=== PATIENT | female | born 1950 | race Caucasian/White ===

== ENCOUNTER 2018-12-21 19:13 | Observation (INO) | payer MEDICARE, BC ==
[~2018-12-21 19:13] MED LIST: Iopamidol-370 76% 500 ML 1 ML ONE
[2018-12-21] MEDS ORDERED: Ondansetron PF 4 MG/2 ML Vial ONE (19:56)
[2018-12-21 20:12] LABS: #Eosinphils 0.1 thou/uL (0.0-0.7); #Monocytes 0.8 thou/uL (0.11-0.59); #Neutrophils 8.3 thou/uL (1.40-6.50); %Basophils 0.3 % (0.0-1.0); %Eosinophils 0.7 % (0.0-10.0); %Lymphocytes 17.9 % (21.0-51.0); %Monocytes 7.4 % (0.0-10.0); %Neutrophils 73.7 % (42.0-75.0); Platelet Count 305 thou/uL (130-400); RBC Distribution Width 11.7 % (11.5-14.5); Red Blood Cell (RBC) Count 4.53 mill/uL (4.20-5.40); White Blood Cell (WBC) Count 11.2 thou/uL (4.8-10.8)
[2018-12-21 20:39] LABS: ALT (SGPT) 31 U/L (8-55); AST (SGOT) 28 U/L (5-34); Albumin 4.8 g/dL (3.4-4.8); Alkaline Phosphatase 82 U/L (40-110); Anion Gap 18 mmol/L (10-20); BUN (Urea Nitrogen) 24 mg/dL (9.8-20.1); Bilirubin, Total 0.7 mg/dL (0.2-1.2); Calc. Creatinine Clearance 0 mL/min (70-130); Calcium 10.5 mg/dL (7.8-10.44); Carbon Dioxide 23 mmol/L (23-31); Chloride 103 mmol/L (98-107); Estimated GFR-MDRD 64; Globulin 2.8 g/dL (2.4-3.5); Glucose 86 mg/dL (80-115); Lipase 8 U/L (8-78); Potassium 3.6 mmol/L (3.5-5.1); Protein, Total 7.6 g/dL (6.0-8.3); Sodium 140 mmol/L (136-145)
[2018-12-21 21:01] LABS: Bacteria/HPF None Seen HPF (None Seen); Bilirubin Negative (Negative); Blood, Urine Negative (Negative); Clarity Clear (Clear); Glucose, Urine (Dipstick) Normal (Negative); Leukocyte 25 Leu/uL (Negative); Nitrite Negative (Negative); Protein, Urine (Dipstick) Negative (Neg-Trace); RBC/HPF 0-3 HPF (0-3); Squamous Epithelial None Seen HPF (0-3); Urobilinogen Normal mg/dL (Less than 2)
--- NOTE | 2018-12-21 21:15 | CT ---
CT abdomen and pelvis with IV contrast HISTORY: Abdominal pain. Rectal bleeding. COMPARISON: 03/23/2015. FINDINGS: The lung bases are clear. There are 3 tiny calcifications within nondilated calyces of the inferior pole of the right kidney. No stones remain on the left. Prominent calcification throughout the arterial structures. Diverticula arise from the colon. There i s long segment circumferential wall thickening involving the splenic flexure of the colon and the entirety of the left colon to the upper sigmoid colon. No adjacent fluid or gas. Appendix is not inflamed. No evidence of bowel obstruction. Degenerative changes lumbar spine. IMPRESSION: There is mild long segment circumferential wall thickening with the appearance of inflamm ation involving the left colon. The distribution is in that of the inferior mesenteric artery, so that ischemic process must be considered. Also consider infection and inflammatory bowel disease. Diverticulosis. Pattern of inflammation is not typical for diverticulitis. Atherosclerosis. Tiny nonobstructing right renal calculi.
[2018-12-21] MEDS ORDERED: metroNIDAZOLE 500 MG/100 ML BAG ONE (22:09)
[2018-12-21] MEDS ORDERED: Ondansetron ODT 4 MG TAB SL PRN (23:23)
[2018-12-21] MEDS ORDERED: Ondansetron PF 4 MG/2 ML Vial IVP PRN (23:23)
[2018-12-21] MEDS ORDERED: Sodium Chloride 0.9% 1,000 ML IV SCH (23:30)
[2018-12-21 23:54] VITALS: BMI 24.7
[2018-12-22] MEDS ORDERED: Ondansetron ODT 4 MG TAB PO PRN (02:01)
[2018-12-22] MEDS ORDERED: hydrALAZINE 20 MG/ML VIAL SLOW IVP PRN (02:01)
[2018-12-22] MEDS ORDERED: Melatonin 3 MG TAB PO PRN (02:01)
[2018-12-22] MEDS ORDERED: Ondansetron PF 4 MG/2 ML Vial IVP PRN (02:01)
[2018-12-22] MEDS ORDERED: Acetaminophen 500 MG TAB PO PRN ×2 (02:01→13:32)
[2018-12-22] MEDS: Sodium Chloride 0.9% 1,000 ML IV SCH ×3 (03:02→20:43)
[2018-12-22] MEDS ORDERED: metroNIDAZOLE 500 MG in Premix Bag 1 BAG IVPB SCH ×2 (06:00)
[2018-12-22] MEDS: Mometasone/Formoterol 120 PUFF INHALER INH SCH ×2 (06:24→18:57)
[2018-12-22 06:34] LABS: Mean Corpuscular HGB CONC 33.8 g/dL (32.0-36.0); Mean Corpuscular Volume 91.8 fL (78.0-98.0); Mean Platelet Volume 6.7 fL (7.4-10.4); Platelet Count 270 thou/uL (130-400); RBC Distribution Width 11.8 % (11.5-14.5); Red Blood Cell (RBC) Count 3.86 mill/uL (4.20-5.40); White Blood Cell (WBC) Count 7.3 thou/uL (4.8-10.8)
[2018-12-22 06:47] LABS: Anion Gap 11 mmol/L (10-20); BUN (Urea Nitrogen) 17 mg/dL (9.8-20.1); Band 2 % (5-11); Calc. Creatinine Clearance 78 mL/min (70-130); Calcium 9.3 mg/dL (7.8-10.44); Carbon Dioxide 26 mmol/L (23-31); Chloride 108 mmol/L (98-107); Eosinophils 3 % (0-10); Estimated GFR-MDRD 69; Glucose 90 mg/dL (80-115); Lymphocytes 33 % (21-51); MDiff Complete? YES; Monocytes 15 % (0-10); Neutrophil 47 % (42-75); Sodium 141 mmol/L (136-145)
--- NOTE | 2018-12-22 08:08 | HP ---
PRIMARY CARE PROVIDER: Dr. Binu Carrillo at [facility]. CHIEF COMPLAINT: Blood per rectum. HISTORY OF PRESENT ILLNESS: This is a 68-year-old female, who initially presented to [facility] Emergency Department complaining of approximate 3-day history of abdominal cramping with bright red blood per rectum. The patient noted the blood on toilet paper within the last 24 hours on 3 different occasions. The patient initially noted abdominal cramping without diarrhea, nausea, or vomiting. The patient denied any recent antibiotic exposure, travel history, or family members with similar symptoms. The patient denies any difficulty with constipation, and underwent colonoscopy exam within the last 2 months prior to this evaluation noted with diverticulosis with recommendations for followup in 3 years for repeat endoscopy. The patient denies any weight changes, change to her dietary regimen, or chronic medications. The patient became concerned when she had the bright red blood on the toilet paper and presented to the emergency room. The patient denied any use of anticoagulation or aspirin. In the emergency room, the patient underwent general evaluation with initial hemoglobin of 14. CT of the abdomen and pelvis was performed showing questionable inflammatory process in the left colon. The patient was initiated on Levaquin 750 mg in addition to Flagyl 500 mg. The patient received intravenous normal saline and Zofran. PAST MEDICAL HISTORY: 1. Hyperlipidemia. 2. Hypertension. 3. History of renal lithiasis, status post lithotripsy. 4. Chronic obstructive pulmonary disease. 5. Diverticulosis. PAST SURGICAL HISTORY: 1. Status post section x1. 2. Status post sinus cauterization. 3. Status post ureteral calculus extraction. CURRENT MEDICATIONS: 1. Lipitor 10 mg p.o. at bedtime. 2. Symbicort 160/4.5 two puffs inhaled b.i.d. 3. Hydrochlorothiazide 12.5 mg p.o. daily. 4. DuoNeb two inhalations q.i.d. 5. Losartan 100 mg p.o. daily. 6. Singulair 10 mg p.o. at bedtime. 7. Spiriva HandiHaler 18 mcg inhaled daily. 8. Turmeric root extract 500 mg p.o. daily. ALLERGIES: NO KNOWN DRUG ALLERGIES. FAMILY HISTORY: No inheritable diseases per patient's report. SOCIAL HISTORY: . Resides in [place], [place]. Retired. No alcohol, tobacco, or illicit drug use. REVIEW OF SYSTEMS: CONSTITUTIONAL: Negative for weight loss or gain, ability to conduct usual activities. SKIN: Negative for rash, itching. EYES: Negative for double vision, pain. ENT/MOUTH: Negative for nose bleeding, neck stiffness, pain, tenderness. CARDIOVASCULAR: Negative for palpitations, dyspnea on exertion, orthopnea. RESPIRATORY: Negative for shortness of breath, wheezing, cough, hemoptysis, fever or night sweats. GASTROINTESTINAL: Negative for poor appetite, abdominal pain, heartburn, nausea, vomiting, constipation, or diarrhea. GENITOURINARY: Negative for urgency, frequency, dysuria, nocturia. MUSCULOSKELETAL: Negative for pain, swelling. NEUROLOGIC/PSYCHIATRIC: Negative for anxiety, depression. ALLERGY/IMMUNOLOGIC: Negative for skin rash, bleeding tendency. Otherwise, negative except as stated per HPI. PHYSICAL EXAMINATION: VITAL SIGNS: On admission, blood pressure 180/112, pulse 121, respiratory rate 18, temperature 98.9 degrees Fahrenheit, O2 saturation 95% on room air. GENERAL APPEARANCE: This is a 68-year-old female, alert and oriented x3, pleasant, conversant, responsive, in no acute distress. HEENT: Pupils are equal, round, reactive to light and accommodation. Extraocular muscles are intact. No scleral icterus. No conjunctival injection. Nares are patent. OP is clear. Teeth in good repair. NECK: Supple. No cervical adenopathy. No thyromegaly. No carotid bruits. No JVD appreciated. Cervical spine with full active and passive range of motion. No meningeal signs noted. CHEST: Lungs are clear to auscultation bilaterally. CARDIOVASCULAR: S1 and S2 without noted murmur, rub, or gallop. ABDOMEN: Rounded, soft, nontender, and nondistended. Bowel sounds positive in all 4 quadrants. No palpable mass. No rebound or guarding noted. EXTREMITIES: Warm and dry with fair turgor. No clubbing, cyanosis, or asymmetric edema appreciated. Pulses palpable distally at the dorsalis pedis, posterior tibial, and popliteal arteries bilaterally. Capillary refill less than 2 seconds. NEUROLOGIC: Cranial nerves 2 through 12 are grossly intact. No focal or lateralizing signs appreciated. PERTINENT LABORATORY AND X-RAY FINDINGS: Sodium 140, potassium 3.6, chloride 103, CO2 of 23, BUN 24, creatinine 0.88, estimated GFR 64, glucose 86, calcium 10.5. LFTs within normal limits. Lipase 8. CBC showed a white blood cell count of 11.2, hemoglobin 14, hematocrit 41, platelet count 305 with 74% neutrophils. Urinalysis negative. CT of the abdomen and pelvis dated 12/21/2018, showed mild circumferential wall thickening in the left colon. Diverticulosis. ASSESSMENT AND PLAN: 1. Colitis with hematochezia. The patient will be observed on the medical floor. Presumed infectious process with inflammatory changes. Continue Levaquin 500 mg IV daily with additional Flagyl 500 mg IV q.8 hours. Consult GI Service in the a.m. for any further recommendations. Recent colonoscopy showed diverticulosis per patient's report. Continue IV fluids with normal saline at 100 mL/h. Repeat CBC in the a.m. 2. Abdominal pain secondary to #1. Continue supportive management as outlined in #1. Clear liquids as tolerated. 3. Acute kidney injury on chronic kidney disease stage 2. Continue IV fluids as outlined previously in #1. Avoid nephrotoxic agents and limit contrast exposure. Repeat creatinine in the a.m. 4. Hypertension. Resume home antihypertensive regimen and monitor clinical response. 5. Prophylaxis. SCDs while in bed. Pepcid 20 mg p.o. b.i.d. 6. Code status, full. Surrogate medical decision maker is the patient's spouse. Job ID: [id number]
[2018-12-22] MEDS ORDERED: Non-Formulary Item 1 EACH (Tiotropium [Spiriva Handihaler] 18 MCG) INH SCH (09:00)
[2018-12-22] MEDS: Famotidine 20 MG TAB PO SCH ×2 (10:17→20:44)
[2018-12-22] MEDS: Hydrochlorothiazide 25 MG TAB PO SCH (10:18)
[2018-12-22] MEDS: Losartan 25 MG TAB PO SCH (10:19)
[2018-12-22] MEDS: metroNIDAZOLE 500 MG TAB PO SCH ×2 (16:16→20:44)
[2018-12-22] MEDS: Ciprofloxacin 500 MG TAB PO SCH (20:43)
[2018-12-22] MEDS ORDERED: Montelukast Sodium 10 mg Tablet PO SCH (21:00)
--- NOTE | 2018-12-22 21:53 | CON ---
DATE OF CONSULTATION: 12/22/2018 REASON FOR CONSULTATION: Hematochezia, abnormal GI imaging. CONSULTING PROVIDER: Jose Jean-Baptiste MD. HISTORY OF PRESENT ILLNESS: The patient is a 68-year-old female with past medical history of hyperlipidemia, hypertension, nephrolithiasis, COPD and diverticulosis presenting with complaints of hematochezia. She states that approximately 2 months ago, she had a colonoscopy performed at [facility] and was informed that she did not have any polyps or malignancies at that time, but she did have left-sided diverticulosis. However, she was in her usual state of health until approximately 3 days ago when she began to have generalized abdominal pain characterized as a "gas type" pain with associated cramping. The pain was constant with waxing/waning severity, and reached a severity of 10/10 associated with this increased abdominal pain with the appearance of hematochezia x3 where she had approximately 3 bloody bowel movements characterized as bright red blood per rectum with blood and blood clots seen primarily only on the toilet paper and not in the toilet. She did describe a [id number] amount of blood with passage of stool on these 3 occasions, but denies any grossly bloody bowel movements. This was also associated with increased flatus production, burping, nausea without overt emesis and subjective chills. The increasing abdominal pain then prompted her to seek healthcare assistance at the [facility] ER and while being evaluated in the ER, she had complete resolution of her pain. Since that time, she has not had recurrence of her pain and has not had any further episodes of hematochezia either. Currently, she denies any vomiting fevers, hematemesis, melena, dysphagia, odynophagia, or weight loss. REVIEW OF SYSTEMS: A 10-category review of systems was obtained with all responses negative except for the pertinent positives as listed in the HPI. PAST MEDICAL HISTORY: As per HPI. PAST SURGICAL HISTORY: x1, kidney stone extraction and sinus catheterization. FAMILY HISTORY: Denies any GI malignancies. SOCIAL HISTORY: Denies any tobacco, alcohol, or illicit drug use. OUTPATIENT MEDICATIONS: Reviewed. ALLERGIES: NO KNOWN DRUG ALLERGIES. PHYSICAL EXAMINATION: VITAL SIGNS: Temperature 98.7, pulse 100, blood pressure 121/71, respiratory rate 18, saturating 100% on room air. GENERAL: The patient was lying in bed, in no acute distress. Alert and oriented x4. HEENT: Normocephalic, atraumatic. NECK: Supple. No JVD or scleral icterus noted. CARDIOVASCULAR: Tachycardic rate, but regular rhythm with no discernible murmurs, gallops, or rubs. RESPIRATORY: Clear to auscultation bilaterally with no discernible wheezes or rales. ABDOMEN: Hyperactive bowel sounds. Soft, nontender, nondistended. EXTREMITIES: No cyanosis, clubbing, or edema. LABORATORY DATA: CBC with a white blood cell count of 7.3, hemoglobin 12, hematocrit 35.5, platelets 270. Chemistry with a sodium of 141, potassium 4, chloride 108, CO2 of 26, BUN 17, creatinine 0.83, glucose 90, AST 28, ALT 31, alkaline phosphatase 82, total bilirubin 0.7. IMAGING DATA: CT of the abdomen and pelvis was obtained on December 21 2018, which showed diverticula arising from the colon. However, there was a long segment of circumferential wall thickening involving the splenic flexure of the colon and the entirety of the left colon to the upper sigmoid colon without any adjacent fluid or gas. An ischemic versus inflammatory type process was suspected although the pattern of inflammation was not typical for diverticulitis. ASSESSMENT AND PLAN: The patient is a 68-year-old female with past medical history of hyperlipidemia, hypertension, nephrolithiasis, chronic obstructive pulmonary disease and diverticulosis presenting with generalized abdominal pain hematochezia and abnormal GI imaging concerning for diverticulitis versus ischemic colitis. Colitis: The patient is presenting with the acute onset of generalized abdominal pain for the last 3 days characterized as a gas/cramping type pain that was constant until being evaluated in the [facility] ER, where she has had complete resolution of her abdominal pain. At this time, the patient does have imaging findings consistent with inflammation of the colon tracking along the left side of the colon concerning for diverticulitis versus ischemic colitis. However, she has been responsive to IV fluid resuscitation and antibiotic administration at this time, making the diagnosis of diverticulitis a little bit more likely although ischemic colitis cannot be entirely ruled out at this time. RECOMMENDATIONS: 1. We would continue antibiotics for total duration of therapy of 7-10 days with ciprofloxacin and Flagyl. 2. We would continue with IV fluid resuscitation and down titration of her of IV fluids as the patient tolerates more oral intake. 3. We would recommend a low residue diet at least for the next 1-2 weeks and then slowly add higher fiber food back to her diet. 4. We would attempt to maintain normotensive pressures while inpatient. 5. Endoscopic evaluation is not indicated at this time given the increased risk of perforation with either ischemic colitis or diverticulitis. 6. If the patient is doing well again tomorrow, could consider discharge to home with antibiotics and follow up in the GI Clinic as an outpatient. 7. We will continue to follow this patient while inpatient. Please call with any questions. Job ID: [id number]
[2018-12-23] MEDS: Sodium Chloride 0.9% 1,000 ML IV SCH (06:09)
[2018-12-23] MEDS: Ciprofloxacin 500 MG TAB PO SCH (06:09)
[2018-12-23] MEDS: Mometasone/Formoterol 120 PUFF INHALER INH SCH (06:19)
[2018-12-23 06:24] LABS: Hemoglobin 11.7 g/dL (12.0-16.0); Mean Corpuscular HGB CONC 34.1 g/dL (32.0-36.0); Mean Corpuscular Hemoglobin 31.9 pg (27.0-31.0); Mean Corpuscular Volume 93.6 fL (78.0-98.0); Mean Platelet Volume 6.9 fL (7.4-10.4); Platelet Count 252 thou/uL (130-400); RBC Distribution Width 11.9 % (11.5-14.5); Red Blood Cell (RBC) Count 3.66 mill/uL (4.20-5.40); White Blood Cell (WBC) Count 5.8 thou/uL (4.8-10.8)
[2018-12-23 06:26] LABS: Anion Gap 9 mmol/L (10-20); BUN (Urea Nitrogen) 11 mg/dL (9.8-20.1); Calc. Creatinine Clearance 73 mL/min (70-130); Carbon Dioxide 28 mmol/L (23-31); Chloride 109 mmol/L (98-107); Estimated GFR-MDRD 63; Glucose 128 mg/dL (80-115); Sodium 142 mmol/L (136-145)
[2018-12-23] MEDS: Famotidine 20 MG TAB PO SCH (08:42)
[2018-12-23] MEDS: metroNIDAZOLE 500 MG TAB PO SCH ×2 (08:43→14:36)
[2018-12-23 13:50] VITALS: BP 116/75; TEMP 98.3
--- NOTE | 2018-12-23 14:35 | PDOC.HOSPP ---
- Subjective Encounter Date: 12/23/18 Encounter Time: 14:33 Subjective: Ms. Starkey was seen today in follow-up of colitis. She says she is tolerating the full liquid diet. She does not have any complaints. - Objective Vital Signs & Weight: Vital Signs (12 hours) Temp Pulse Resp BP BP Pulse Ox 12/23/18 14:20 90 16 97 12/23/18 13:37 98.3 F 92 20 116/75 94 L 12/23/18 11:37 95 123/57 L 12/23/18 10:18 98 16 97 12/23/18 08:40 113/63 12/23/18 07:17 98.2 F 93 17 110/64 92 L 12/23/18 06:16 84 16 95 12/23/18 04:00 98.6 F 80 18 106/63 95 Weight Weight 163 lb I&O: 12/22/18 12/23/18 12/24/18 06:59 06:59 06:59 Intake Total 1100 4105 Balance 1100 4105 Result Diagrams: 12/23/18 05:16 12/23/18 05:16 Hospitalist ROS - Medication Medications: Active Medications Generic Name Dose Route Start Last Admin Trade Name Freq PRN Reason Stop Dose Admin Albuterol/Ipratropium 3 ml 12/22/18 07:00 12/23/18 14:20 Duoneb NEB 3 ml QID-RT BALTA Administration Ciprofloxacin 500 mg 12/22/18 20:00 12/23/18 06:09 Cipro PO 500 mg BID@0600,2000 BALTA Administration Famotidine 20 mg 12/22/18 09:00 12/23/18 08:42 Pepcid PO 20 mg BID BALTA Administration Hydrochlorothiazide 12.5 mg 12/22/18 09:00 12/22/18 10:18 Hydrochlorothiazide PO 12.5 mg DAILY BALTA Administration Losartan Potassium 100 mg 12/22/18 09:00 12/22/18 10:19 Cozaar PO 100 mg DAILY BALTA Administration Metronidazole 500 mg 12/22/18 15:00 12/23/18 08:43 Flagyl PO 500 mg TID BALTA Administration Mometasone Furoate/Formoterol Fumar 2 puff 12/22/18 06:30 12/23/18 06:19 Dulera 200 Mcg/5 Mcg Inhaler INH 2 puff BID-RT BALTA Administration Montelukast Sodium 10 mg 12/22/18 21:00 12/22/18 20:44 Singulair PO 10 mg HS BALTA Administration Ondansetron HCl 4 mg 12/22/18 02:01 12/22/18 20:44 Zofran Odt PO 4 mg Q6H PRN Administration Nausea/Vomiting - Exam Eye: PERRL, anicteric sclera Heart: RRR (tachycardic), no murmur, no gallops, no rubs, normal peripheral pulses Respiratory: CTAB, no wheezes, no rales, no ronchi, normal chest expansion, normal percussion Gastrointestinal: soft, non-tender, non-distended, normal bowel sounds, no palpable masses, no hepatomegaly, no splenomegaly Extremities: no cyanosis, no edema Hosp A/P (1) Colitis Code(s): K52.9 - NONINFECTIVE GASTROENTERITIS AND COLITIS, UNSPECIFIED Status : Acute (2) Diverticulitis Code(s): K57.92 - DVTRCLI OF INTEST, PART UNSP, W/O PERF OR ABSCESS W/O BLEED Status: Acute (3) Tachycardia Code(s): R00.0 - TACHYCARDIA, UNSPECIFIED Status: Acute (4) Hypertension Code(s): I10 - ESSENTIAL (PRIMARY) HYPERTENSION Status: Chronic (5) COPD (chronic obstructive pulmonary disease) Status: Chronic - Plan * Colitis- possibly due to Diverticulitis- improving * Tachycardia- I suspect due to albuterol neb treatments- but will check an EKG to make sure it is sinus rhythm * COPD- stable * HTN- blood pressure is low normal- she may be still volume depleted- , this may also explain the rapid heart rate
[2018-12-23] MEDS: Hydrochlorothiazide 25 MG TAB PO SCH (15:00)
[2018-12-23] MEDS: Losartan 25 MG TAB PO SCH (15:00)
--- NOTE | 2018-12-24 01:47 | DIS ---
DATE OF ADMISSION: 12/21/2018 DATE OF DISCHARGE: 12/23/2018 DISCHARGE DIAGNOSES: 1. Probable diverticulitis. 2. Hypertension. 3. Chronic obstructive pulmonary disease. 4. Dehydration, resolved. DISCHARGE MEDICATIONS: Include: 1. Ciprofloxacin 500 mg p.o. twice daily for 1 week. 2. Flagyl 500 mg p.o. t.i.d. for a week. 3. Turmeric extract 1 tablet daily. 4. Spiriva 18 mcg inhaled daily. 5. Singulair 10 mg p.o. at bedtime. 6. Losartan 100 mg p.o. daily. 7. Hydrochlorothiazide 12.5 mg daily. 8. Budesonide 2 puffs twice daily, appears to be Symbicort 160/4.5 mg. 9. Lipitor 10 mg at bedtime. CODE STATUS: Full code. ALLERGIES: NO KNOWN DRUG ALLERGIES. PROCEDURES DONE DURING THE ADMISSION: The patient had a CT scan of the abdomen and pelvis demonstrating some wall thickening within the left colon. HOSPITAL COURSE: Ms. Starkey is a very pleasant 68-year-old female, who was admitted to the hospital after having cramping abdominal pain and diarrhea as well as bright red blood per rectum. She was admitted after a CT scan demonstrated some evidence of inflammation in the left colon. It is felt to be either diverticulitis or ischemic colitis. She was seen by Dr. Hilton with Gastroenterology. It was not felt that it was reasonable to do a colonoscopy at this time due to the acute inflammation. She improves with IV fluids. She was placed on antibiotics empirically due to potential for diverticulitis and was subsequently able to be discharged home the following day. It was noted that she had a sinus tachycardia. This was likely due to the DuoNebs treatments that she had received. She was completely asymptomatic from the standpoint. She was instructed on a low residue diet at discharge and then once improved to increase this back up to a high-fiber diet. She is also instructed on warning symptoms to return to the hospital such as fever or worsening abdominal pain. Job ID: [id number]
--- NOTE | 2018-12-25 16:26 | EKG ---
Test Reason : Blood Pressure : / mmHG Vent. Rate : 107 BPM Atrial Rate : 107 BPM P-R Int : 146 ms QRS Dur : 090 ms QT Int : 332 ms P-R-T Axes : 058 050 041 degrees QTc Int : 443 ms Sinus tachycardia Otherwise normal ECG When compared with ECG of 23-MAR-2015 02:08, Nonspecific T wave abnormality no longer evident in Lateral leads Confirmed by DR. Urmila OROZCO ([id number]) on 12/25/2018 4:25:53 PM Referred By: PATRICE Confirmed By:DR. Urmila OROZCO
== END 2018-12-23 16:36 | disposition home or self-care (01) ==
LOC: ERS 19:13 → T4-A 22:55
PROVIDERS: ADMIT Family Medicine; ATTEND Family Medicine
DX: K52.9 Noninfective gastroenteritis and colitis, unspecified (principal); I12.9 Hypertensive chronic kidney disease with stage 1 through stage 4 chronic kidney disease, or unspecified chronic kidney disease; N18.2 Chronic kidney disease, stage 2 (mild); N17.9 Acute kidney failure, unspecified; J44.9 Chronic obstructive pulmonary disease, unspecified; E78.5 Hyperlipidemia, unspecified
CPT/HCPCS: 74177; 80048 ×2; 80053; 83690; 85007; 85025; 85027 ×2; 86850; 86900; 86901; 93005; 94640 ×5; 96361 ×3; 96365; 96368; 96375; 96376; 99285; G0378 ×4; 36415; 81003; 81015; 93010; J1956; J2405; J7620; Q0162; Q9967